=== PATIENT | male | born 2000 | race Caucasian/White ===

== ENCOUNTER 2023-10-23 09:46 | Emergency (ER) | payer SELFPAY ==
[~2023-10-23] VITALS: Ht 172.7 cm; Wt 65.9 kg
[2023-10-23 10:10] LABS: BASO # 0.1 K/mm3 (0.0-0.2); EOS # 0.1 K/mm3 (0.0-0.7); EOS % 2.5 % (0.0-4.0); GRAN # 2.1 K/mm3 (1.4-6.5); GRAN % 42.8 % (42.2-75.2); HEMATOCRIT 46.3 % (42.0-52.0); LYMPH # 2.2 K/mm3 (1.2-3.4); LYMPH % 44.8 % (20.0-51.0); MEAN CELL VOLUME 89 fl (80.0-100.0); MEAN CORPUSCULAR HEMOGLOBIN 31 pg (27-31); MEAN CORPUSCULAR HGB CONC 35 g/dl (33.0-37.0); MEAN PLATELET VOLUME 8.8 fl (7.4-10.4); MONO # 0.4 K/mm3 (0.1-0.6); MONO % 8.7 % (1.7-9.3); PLATELET COUNT 219 K/mm3 (130-400); RED BLOOD COUNT 5.23 M/mm3 (4.20-5.60); REDCELL DISTRIBUTION WIDTH-CV 12.2 % (11.5-14.5)
[2023-10-23 10:30] LABS: ALANINE AMINOTRANSFERASE 45 U/L (0-55); ALBUMIN 4.7 g/dL (3.5-5.0); ALKALINE PHOSPHATASE 95 U/L (40-150); ANION GAP 13 mmol/L (7-16); AST,SGOT 60 U/L (5-34); BILIRUBIN,TOTAL 0.7 mg/dL (0.2-1.2); BLOOD UREA NITROGEN 18 mg/dL (9-21); CALCIUM 9.8 mg/dL (8.4-10.2); CHLORIDE 103 mEq/L (98-107); CREATININE, serum 1.01 mg/dL (0.72-1.25); GLUCOSE 95 mg/dL (70-99); SODIUM 138 mEq/L (136-145); TOTAL PROTEIN 7.8 g/dl (6.2-8.1)
[2023-10-23 10:37] LABS: TROPONIN-I < 0.010 ng/mL (0.00-0.033)
== END 2023-10-23 11:12 | disposition home or self-care (01) ==
LOC: COL.ER 09:46
PROVIDERS: Personal Emergency Response Attendant
DX: R07.89 Other chest pain (principal)